=== PATIENT | female | born 1995 | race Caucasian/White ===

== ENCOUNTER → 2017-04-12 | Outpatient (REF) | payer OTHER ==
[~2017-04-12] MED LIST: PRENTAB13 PO
[2017-04-12 13:22] LABS: MEAN CORPUSCULAR HEMOGLOBIN 31.2 pg (27.0-33.0); MEAN CORPUSCULAR HGB CONC 34.4 g/dl (32.0-36.5); MEAN CORPUSCULAR VOLUME 90.6 fl (80.0-96.0); RED CELL DISTRIBUTION WIDTH 13.3 % (11.5-14.5); WHITE BLOOD COUNT 9.2 K/mm3 (4.0-10.0)
[2017-04-12 15:24] LABS: HCG, SERUM QUANTITATIVE 46467 MIU/ML
[2017-04-13 10:55] LABS: HBsAg Prenatal NEGATIVE (NEGATIVE)
== END ==
LOC: M LAB REF 12:43
PROVIDERS: ATTEND Obstetrics & Gynecology
DX: O36.80X0 Pregnancy with inconclusive fetal viability, not applicable or unspecified (principal)

== ENCOUNTER → 2017-08-29 | Outpatient (CLI) | payer BC, OTHER ==
[~2017-08-29] MED LIST changes: -PRENTAB13 PO; +PRENTAB20 PO
[2017-08-29 13:17] LABS: MEAN CORPUSCULAR HEMOGLOBIN 31.3 pg (27.0-33.0); MEAN CORPUSCULAR HGB CONC 33.8 g/dl (32.0-36.5); MEAN CORPUSCULAR VOLUME 92.6 fl (80.0-96.0); PLATELET COUNT, AUTOMATED 243 10^3/uL (150-450); RED CELL DISTRIBUTION WIDTH 14.1 % (11.5-14.5); WHITE BLOOD COUNT 11.8 10^3/uL (4.0-10.0)
== END ==
LOC: M LAB 11:30
PROVIDERS: ATTEND Obstetrics & Gynecology
DX: Z34.82 Encounter for supervision of other normal pregnancy, second trimester (principal)

== ENCOUNTER → 2017-11-08 | Outpatient (REF) | payer BC, OTHER | LOC: M LAB REF 13:04 | DX: Z34.83 Encounter for supervision of other normal pregnancy, third trimester (principal) | CPT/HCPCS: 87186 ==

== ENCOUNTER 2017-11-30 14:12 | Inpatient (IN) | payer BC, OTHER ==
[2017-11-30 15:38] LABS: HEMATOCRIT 32.3 % (36.0-47.0); HEMOGLOBIN 10.8 g/dl (12.0-16.0); MEAN CORPUSCULAR HEMOGLOBIN 29.8 pg (27.0-33.0); MEAN CORPUSCULAR HGB CONC 33.4 g/dl (32.0-36.5); PLATELET COUNT, AUTOMATED 214 10^3/uL (150-450); RED BLOOD COUNT 3.63 10^6/uL (4.00-5.40); RED CELL DISTRIBUTION WIDTH 12.8 % (11.5-14.5); WHITE BLOOD COUNT 14.4 10^3/uL (4.0-10.0)
[2017-11-30] MEDS: PENICILLIN G POTASSIUM IV 5 MU in D5W MINI-BAG PLUS 100 ML IV (15:38)
[2017-11-30] MEDS ORDERED: PENICILLIN G POTASSIUM IV 2.5 MU in APPROPRIATE DILUENT 1 EA IV (19:00)
[2017-11-30] MEDS ORDERED: OXYTOCIN 30 UNITS IN 0.9% NaCl 500ML IV BAG (J2590) As Ordered (19:45)
[2017-11-30] MEDS: OXYTOCIN DRIP 30 UNITS in APPROPRIATE DILUENT 1 EA IV (21:10)
[2017-11-30] MEDS ORDERED: METHYLERGONOVINE MALEATE 0.2 MG TAB PO (21:15)
[2017-11-30] MEDS ORDERED: IBUPROFEN 800 MG TAB PO (21:15)
[2017-11-30] MEDS ORDERED: ACETAMINOPHEN 500 MG TAB PO (21:15)
[2017-11-30] MEDS ORDERED: DOCUSATE SODIUM 100 MG CAP PO (21:15)
[2017-11-30] MEDS ORDERED: DIBUCAINE 1% OINTMENT 30GM TOP (21:15)
[2017-11-30] MEDS ORDERED: MEASLES,MUMPS,RUBELLA VACCINE INJ (MMR-II) (90707) SC (21:15)
[2017-11-30] MEDS ORDERED: ANUSOL HC CREAM 30GM TOP (21:15)
[2017-12-01] MEDS: PRENATAL VITAMINS CHEWABLE TABLET PO (07:35)
[2017-12-01 12:06] LABS: FETAL SCREEN PROF. 1 1
[2017-12-01] MEDS: RHOGAM 300 MCG (1500 IU) INJ (J2790) IM (12:34)
[2017-12-02] MEDS: PRENATAL VITAMINS CHEWABLE TABLET PO (08:01)
== END 2017-12-02 09:00 | disposition home or self-care (01) | DRG 560 ==
LOC: M LDI 14:12 → M OBS 23:27
PROVIDERS: Advanced Practice Midwife
PROC: 10E0XZZ Delivery of Products of Conception, External Approach (ICD-10-PCS; principal; 2017-11-30)
PROC: 30233S1 Transfusion of Nonautologous Globulin into Peripheral Vein, Percutaneous Approach (ICD-10-PCS; 2017-12-01)
DX: O99.824 Streptococcus B carrier state complicating childbirth (principal); Z37.0 Single live birth; Z3A.39 39 weeks gestation of pregnancy

== ENCOUNTER → 2019-03-21 | Outpatient (REF) | payer OTHER ==
[~2019-03-21] MED LIST changes: +MOTR200T44 PO; +TYLE325T5 PO
[2019-03-21 19:26] LABS: HEMATOCRIT 37.2 % (36.0-47.0); HEMOGLOBIN 12.6 g/dl (12.0-15.5); MEAN CORPUSCULAR HEMOGLOBIN 29.3 pg (27.0-33.0); MEAN CORPUSCULAR HGB CONC 33.9 g/dl (32.0-36.5); MEAN CORPUSCULAR VOLUME 86.5 fl (80.0-96.0); PLATELET COUNT, AUTOMATED 286 10^3/uL (150-450)
[2019-03-21 20:51] LABS: HCG, SERUM QUANTITATIVE 22402 MIU/ML; HIV 1&2 SCREEN CENTAUR NEGATIVE (NEGATIVE)
[2019-03-23 11:13] LABS: RUBELLA IgG QUALITATIVE IMMUNE (IMMUNE)
[2019-03-23 11:42] LABS: HEPATITIS C VIRUS ABY INDEX < 0.0 INDEX (<0.8)
== END ==
LOC: M LAB REF 16:54
PROVIDERS: ATTEND Obstetrics & Gynecology
DX: Z34.81 Encounter for supervision of other normal pregnancy, first trimester (principal); Z3A.00 Weeks of gestation of pregnancy not specified

== ENCOUNTER → 2019-08-15 | Outpatient (REF) | payer OTHER ==
[2019-08-15 17:14] LABS: HEMATOCRIT 33.9 % (36.0-47.0); HEMOGLOBIN 11.3 g/dl (12.0-15.5); MEAN CORPUSCULAR HEMOGLOBIN 30.7 pg (27.0-33.0); MEAN CORPUSCULAR HGB CONC 33.3 g/dl (32.0-36.5); MEAN CORPUSCULAR VOLUME 92.1 fl (80.0-96.0); PLATELET COUNT, AUTOMATED 234 10^3/uL (150-450); RED BLOOD COUNT 3.68 10^6/uL (4.00-5.40); WHITE BLOOD COUNT 10.8 10^3/uL (4.0-10.0)
== END ==
LOC: M LABDRWAD 16:08
PROVIDERS: ATTEND Obstetrics & Gynecology
DX: Z34.83 Encounter for supervision of other normal pregnancy, third trimester (principal)

== ENCOUNTER → 2019-10-18 | Outpatient (REF) | payer OTHER | LOC: M LAB REF 12:39 | PROVIDERS: ATTEND Obstetrics & Gynecology | DX: Z36.85 Encounter for antenatal screening for Streptococcus B (principal) ==

== ENCOUNTER 2019-11-14 06:58 | Inpatient (IN) | payer BC, OTHER ==
[~2019-11-14] VITALS: Ht 165.1 cm; Wt 80.2 kg
[2019-11-14] VITALS (11 sets, daily range): BP systolic 118–139; BP diastolic 2–74
[2019-11-14] MEDS ORDERED: AMPICILLIN SOD 2 GM in APPROPRIATE DILUENT 20 ML IV STA (07:23)
[2019-11-14] MEDS ORDERED: LACTATED RINGER'S 1000 ML IV STA (07:23)
[2019-11-14] MEDS: miSOPROStol 50 MCG 1/2 TAB (S0191) PO SCH ×2 (08:27→12:34)
[2019-11-14 08:37] LABS: HEMATOCRIT 34.3 % (36.0-47.0); HEMOGLOBIN 10.9 g/dl (12.0-15.5); MEAN CORPUSCULAR HEMOGLOBIN 28.1 pg (27.0-33.0); MEAN CORPUSCULAR HGB CONC 31.8 g/dl (32.0-36.5); MEAN CORPUSCULAR VOLUME 88.4 fl (80.0-96.0); PLATELET COUNT, AUTOMATED 167 10^3/uL (150-450); RED BLOOD COUNT 3.88 10^6/uL (4.00-5.40); WHITE BLOOD COUNT 11.2 10^3/uL (4.0-10.0)
[2019-11-14] MEDS: LR 1,000 ML IV SCH ×2 (09:54→18:00)
[2019-11-14] MEDS: AMPICILLIN SOD 1 GM in APPROPRIATE DILUENT 10 ML IV SCH ×2 (11:29→15:37)
[2019-11-14] MEDS ORDERED: FENTANYL 2MCG/ML ROPIVACAINE 0.2% IN 0.9% NACL 100ML IVBAG As Ordered ONE (16:11)
[2019-11-14] MEDS ORDERED: ONDANSETRON 4MG/2ML VIAL (J2405) IV PRN (17:30)
[2019-11-14] MEDS ORDERED: ePHEDrine SULFATE 25 MG/5 ML(5MG/ML) SYRINGE IV PRN (17:30)
[2019-11-14] MEDS ORDERED: EPIDURAL COMMENT XX SCH (17:30)
[2019-11-14] MEDS ORDERED: EPIDURAL/PCA KEYS XX PRN (17:30)
[2019-11-14] MEDS ORDERED: FENTANYL/ROPIVACAINE/NACL BAG 100 ML EPIDURAL SCH (17:30)
[2019-11-14] MEDS ORDERED: REFRIGERATOR IV KEYS XX PRN (17:30)
[2019-11-14] MEDS ORDERED: diphenhydrAMINE INJ 50MG/ML VIAL (J1200) IV PRN (17:30)
[2019-11-14] MEDS ORDERED: NALOXONE INJ 0.4 MG/1 ML VIAL (J2310) IV PRN (17:30)
[2019-11-14] MEDS ORDERED: OXYTOCIN 30 UNITS IN 0.9% NaCl 500ML IV BAG (J2590) As Ordered ONE (18:19)
[2019-11-14] MEDS ORDERED: OXYTOCIN DRIP 30 UNITS in IV 1 EA IV SCH (18:44)
[2019-11-14] MEDS ORDERED: METHYLERGONOVINE MALEATE 0.2 MG TAB PO PRN (18:45)
[2019-11-14] MEDS ORDERED: ANUSOL HC CREAM 30GM TOP PRN (18:45)
[2019-11-14] MEDS ORDERED: DOCUSATE SODIUM 100 MG CAP PO PRN (18:45)
[2019-11-14] MEDS ORDERED: ACETAMINOPHEN TAB 650MG DOSE (2X325MG) PO PRN (18:45)
[2019-11-14] MEDS ORDERED: RHOGAM 300 MCG (1500 IU) INJ (J2790) IM SCH (18:45)
[2019-11-14] MEDS ORDERED: MEASLES,MUMPS,RUBELLA VACCINE INJ (MMR-II) (90707) SC SCH (18:45)
[2019-11-14] MEDS ORDERED: IBUPROFEN 600 MG TAB PO PRN (18:45)
[2019-11-14] MEDS ORDERED: DIBUCAINE 1% OINTMENT 30GM TOP PRN (18:45)
[2019-11-14 18:49] LABS: CORD GAS ABE V -1.8; CORD GAS HCO3 V 21.8 MEQ/L; CORD GAS O2 SAT V 86.5 %; CORD GAS PCO2 V 33.9 mmHg; CORD GAS PH V 7.427 UNITS; CORD GAS PO2 V 42.1 mmHg; CORD GAS SBC V 22.7 MEQ/L; CORD GAS TCO2 V 22.9 MEQ/L
[2019-11-14 18:50] LABS: CORD GAS ABE A -2.7; CORD GAS HCO3 A 23.9 MEQ/L; CORD GAS O2 SAT A 57.7 %; CORD GAS PCO2 A 49.1 mmHg; CORD GAS PH A 7.306 UNITS; CORD GAS PO2 A 27.1 mmHg; CORD GAS SBC A 21.3 MEQ/L; CORD GAS TCO2 A 25.5 MEQ/L
[2019-11-15] MEDS: IBUPROFEN 800 MG TAB PO PRN ×2 (04:12→17:47)
[2019-11-15 05:54] VITALS: BP 126/73
[2019-11-15] MEDS: PRENATAL VITAMINS CHEWABLE TABLET PO SCH (08:41)
[2019-11-15] MEDS: ACETAMINOPHEN 500 MG TAB PO PRN ×3 (08:41→21:23)
--- NOTE | 2019-11-15 08:58 | HPE ---
DATE OF ADMISSION: 11/14/2019 HISTORY: Elena is at 24-year-old female, 3, para 2-0-0-2, with an expected date of confinement (EDC) of 11/14/2019, estimated gestational age (EGA) of 40 weeks gestation who is being admitted for elective induction. Upon admission, occasional contractions, no bleeding, no leakage of fluid, good movement. Her care was done at [facility]. She initiated care at approximately 7 weeks gestation. Her course has been unremarkable. LABS: Blood type is A negative. Rubella immune. Hepatitis negative. HIV negative. GC and chlamydia negative. 1-hour sugar testing was within normal limits. She does have a history of prior GBS positive culture, although her recent GBS was negative. After extensive counseling with the patient, she did want to proceed with GBS prophylaxis treatment. PAST MEDICAL HISTORY: Denies. PAST SURGICAL HISTORY: [place] tooth extraction. SOCIAL HISTORY: She is . Denies any alcohol, drug or cigarette smoking. FAMILY HISTORY: Unremarkable. MEDICATIONS: vitamin. ALLERGIES: No known drug allergy. PHYSICAL EXAMINATION: HEENT: Grossly within normal limits. Abdomen: Soft, nontender, nondistended. Extremities: No clubbing, cyanosis or edema. Vaginal Exam: 3-4 cm dilated, 70% effaced, fetus at -3 station, in vertex position. Tracing reviewed, category one tracing. ASSESSMENT: Intrauterine at 40 weeks gestation being admitted for an induction. History of positive GBS, wants to be treated. PLAN: Admit to labor and delivery. Routine labs sent. Ampicillin started for GBS prophylaxis. Induction process discussed with the patient and decision made to proceed with 50 mcg of Cytotec then by mouth given. Pain management discussed. The patient opts for nothing at this point. Will continue to monitor. Anticipate delivery.
--- NOTE | 2019-11-15 11:07 | DN ---
DATE OF DELIVERY: 11/14/2019 Elena is a 24-year-old female, 3, para 2-0-0-2, who was admitted at 40 weeks gestation. She underwent two Cytotecs, became fully dilated, had an epidural. She was then ruptured with clear fluid. She pushed and delivered a live female infant in left occiput anterior position over an intact perineum with a nuchal cord times one. 8 and 9. weight 8 pounds 6 ounces. Placenta delivered spontaneously intact. Three-vessel cord. Perineum, vagina and cervix inspected. No lacerations noted. Estimated blood loss was 250 mL. Both mother and baby in stable condition.
[2019-11-15 18:48] VITALS: BP 125/61
[2019-11-15] MEDS ORDERED: OXYTOCIN DRIP 30 UNITS in IV 1 EA IV SCH (20:00)
[2019-11-16] MEDS ORDERED: IBUP80TA PO (06:10)
[2019-11-16 06:37] VITALS: BP 117/69
[2019-11-16] MEDS: PRENATAL VITAMINS CHEWABLE TABLET PO SCH (07:34)
[2019-11-16] MEDS: ACETAMINOPHEN 500 MG TAB PO PRN (07:35)
== END 2019-11-16 11:10 | disposition home or self-care (01) | DRG 560 ==
LOC: UNDOADMIN 06:58 → M LDI 06:58 → M OBS 21:10
PROVIDERS: ADMIT Obstetrics & Gynecology; ATTEND Obstetrics & Gynecology
PROC: 10E0XZZ Delivery of Products of Conception, External Approach (ICD-10-PCS; principal; 2019-11-14)
PROC: 3E0P7GC Introduction of Other Therapeutic Substance into Female Reproductive, Via Natural or Artificial Opening (ICD-10-PCS; 2019-11-14)
PROC: 10907ZC Drainage of Amniotic Fluid, Therapeutic from Products of Conception, Via Natural or Artificial Opening (ICD-10-PCS; 2019-11-14)
DX: O99.824 Streptococcus B carrier state complicating childbirth (principal); Z3A.40 40 weeks gestation of pregnancy; Z37.0 Single live birth; O69.81X0 Labor and delivery complicated by cord around neck, without compression, not applicable or unspecified